=== PATIENT | male | born 1945 | race Caucasian/White ===

== ENCOUNTER 2018-05-10 06:02 | Day surgery (SDC) | payer MEDICARE, OTHER ==
[~2018-05-10] VITALS: Ht 175.3 cm; Wt 127.7 kg
[~2018-05-10 06:02] MED LIST: SODIUM CHLORIDE 0.9% 1,000 ML IV ONE
[2018-05-10] MEDS ORDERED: LIDOCAINE HCL 2% 30 ML JELLY TP ONE (06:03)
[2018-05-10] MEDS ORDERED: BENZOCAINE 20% 50 MCG/SPRAY 57 GM TP ONE (06:03)
[2018-05-10] MEDS ORDERED: EPINEPHrine 1:1,000 [1 MG/ML] AMP IM ONE (06:03)
[2018-05-10] MEDS ORDERED: LIDOCAINE HCL 4% 50 ML SOLUTION TP ONE (06:03)
[2018-05-10] MEDS ORDERED: SODIUM CHLORIDE 0.9% 1,000 ML IV ONE (07:00)
[2018-05-10] MEDS ORDERED: FentaNYL CITRATE-PF 100 MCG/2 ML VIAL ONE (08:04)
[2018-05-10] MEDS ORDERED: MIDAZOLAM HCL 2 MG/2 ML VIAL ONE (08:04)
[2018-05-10] MEDS ORDERED: TIOT4MIS2 IH (08:08)
[2018-05-10] MEDS ORDERED: FLUT1BLS IH (08:08)
[2018-05-10] MEDS ORDERED: FLUT16H NASAL (08:08)
[2018-05-10] MEDS ORDERED: RANI150T7 PO (08:08)
[2018-05-10] MEDS ORDERED: MONT10TA21 PO (08:08)
[2018-05-10] MEDS ORDERED: PROM50S PR (08:08)
[2018-05-10] MEDS ORDERED: PRED20 PO (08:08)
[2018-05-10] MEDS ORDERED: MethylPREDNISolone SOD SUCC 125 MG/2 ML VIAL IVP ONE (08:45)
[2018-05-10] MEDS ORDERED: MethylPREDNISolone SOD SUCC 125 MG/2 ML VIAL ONE (08:51)
[2018-05-10] MEDS ORDERED: OXYGEN THERAPY IH SCH (20:00)
== END 2018-05-10 09:50 | disposition home or self-care (01) ==
LOC: SURGERY 06:02
PROVIDERS: ATTEND Internal Medicine Critical Care Medicine
DX: J38.4 Edema of larynx (principal); B37.0 Candidal stomatitis; K21.9 Gastro-esophageal reflux disease without esophagitis; J44.9 Chronic obstructive pulmonary disease, unspecified; I10 Essential (primary) hypertension; Z72.89 Other problems related to lifestyle; Z79.899 Other long term (current) drug therapy; Z98.890 Other specified postprocedural states
CPT/HCPCS: 31623; 31624; 71045; 87015; 87070; 87205; 87206; 87220; 88108; 88312; J0171; J2250; J2930; J3010; J7030